=== PATIENT | male | born 1990 | race Two or more races ===

== ENCOUNTER 2019-06-24 05:18 | Emergency (ER) | payer MEDICAID, OTHER ==
[~2019-06-24] VITALS: Ht 185.4 cm; Wt 97.1 kg
[2019-06-24 06:15] LABS: Basophils # (auto) 0.1 uL; Basophils % (auto) 0.9 % (0.0-2.0); Eosinophils # (auto) 0.4 uL; Eosinophils % (auto) 3.3 % (0.0-7.0); Hematocrit 45.8 % (41.0-53.0); Hemoglobin 15.6 g/dL (13.5-17.5); Lymphocytes # (auto) 2.2 uL; Lymphocytes % (auto) 20.2 % (10.0-50.0); Mean Corpuscular Hemoglobin 31.8 pg (28.0-32.0); Mean Corpuscular Volume 93.5 fL (80.0-100.0); Monocytes # (auto) 0.9 uL; Monocytes % (auto) 8.5 % (0.0-12.0); Neutrophils # (auto) 7.2 uL; Neutrophils % (auto) 67.1 % (37.0-80.0); Nucleated Red Blood Cells % 0.1 %; Platelet Count (auto) 283 10^3/uL (140-450); Red Cell Distribution Width 13.6 % (11.8-14.3); White Blood Cell 10.8 10^3/uL (4.4-10.8)
[2019-06-24 06:42] LABS: Albumin 3.7 g/dL (3.4-5.0); Anion Gap 6 (5-15); Blood Urea Nitrogen 9 mg/dL (7-18); Calcium 8.4 mg/dL (8.5-10.1); Carbon Dioxide 27 mmol/L (21-32); Chloride 104 mmol/L (98-107); Glucose 129 mg/dL (74-106); Magnesium 2.3 mg/dL (1.6-2.6); Potassium 3.8 mmol/L (3.5-5.1); Sodium 137 mmol/L (136-145)
[2019-06-24 06:49] LABS: Alanine Aminotransferase 25 U/L (16-61); Alkaline Phosphatase 91 U/L (45-117); Aspartate Aminotransferase 20 U/L (15-37); BUN/Creatinine Ratio 9.5; Bilirubin, Total 0.4 mg/dL (0.2-1.0); GFR African American 121 mL/min; GFR Non-African American 100 mL/min; Total Protein 7.5 g/dL (6.4-8.2)
[2019-06-24] MEDS ORDERED: KETOROLAC TROMETH 30 MG/ML 1ML VIAL IV ONE (08:15)
[2019-06-24 13:06] LABS: Urine Bacteria NONE SEEN /hpf (None Seen); Urine Blood 1+ /uL (Negative); Urine Mucus FEW (None Seen); Urine Specific Gravity 1.017 (1.001-1.035); Urine WBC 3 /hpf (0 - 3)
[2019-06-24 13:30] VITALS: BP 103/56
== END 2019-06-24 14:22 | disposition home or self-care (01) ==
LOC: ER 05:18
DX: R07.89 Other chest pain (principal); F17.210 Nicotine dependence, cigarettes, uncomplicated; F12.10 Cannabis abuse, uncomplicated
CPT/HCPCS: 36415; 71046; 80053; 81001; 83735; 84484; 85025; 93005; 96374; 99284; J1885

== ENCOUNTER 2020-11-06 23:57 | Emergency (ER) | payer SELFPAY ==
[~2020-11-06] VITALS: Ht 185.4 cm; Wt 104.3 kg
[2020-11-07 00:35] VITALS: BP 152/80
[2020-11-07] MEDS ORDERED: MORPHINE SULF INJ 2 MG/ML SYRINGE 1ML IM ONE (02:00)
[2020-11-07] MEDS ORDERED: TETANUS-DIPTH-ACEL PERTUSSIS 0.5ML SYR Tdap IM ONE (02:00)
[2020-11-07] MEDS ORDERED: ONDANSETRON ODT 4 MG TAB PO ONE (02:00)
[2020-11-07] MEDS ORDERED: cefTRIAXone SOD 1,000 MG VL IM ONE (02:00)
[2020-11-07] MEDS ORDERED: BACITRACIN TOP OINT 1 UD PKG TOP ONE (03:15)
== END 2020-11-07 03:41 | disposition home or self-care (01) ==
LOC: ER 23:58
DX: S61.512A Laceration without foreign body of left wrist, initial encounter (principal); F12.10 Cannabis abuse, uncomplicated; W26.9XXA Contact with unspecified sharp object(s), initial encounter; Y93.89 Activity, other specified; Y92.89 Other specified places as the place of occurrence of the external cause; Y99.8 Other external cause status
CPT/HCPCS: 12004; 73090; 90471; 90715; 96372; 99284; J0696; J2270; Q0162

== ENCOUNTER 2024-06-12 06:17 | Inpatient (IN) | payer OTHER, MEDICAID ==
[2024-06-12] VITALS (8 sets, daily range): BP systolic 103–139; BP diastolic 55–77; PULSE 82–109; RESP 14–18; TEMP 97.3–98.5; O2SAT 95–98
[~2024-06-12] VITALS: Ht 182.9 cm; Wt 107.2 kg
[2024-06-12] MEDS: methylPREDNISolone SOD SUCC 125 MG/2 ML VL IM ONE (06:30)
[2024-06-12] MEDS: ALBUTEROL SULF 2.5 MG/0.5ML(0.5%) NEB SOLN NEB ONE ×3 (06:38→15:10)
[2024-06-12] MEDS: IPRATROPIUM BROM 0.5 MG/2.5ML INH SOL NEB ONE ×2 (06:38→15:10)
[2024-06-12] MEDS: methylPREDNISolone SOD SUCC 125 MG/2 ML VL IV ONE (07:36)
[2024-06-12 08:02] LABS: Basophils # (auto) 0.1 10 ^3/uL (0-0.2); Basophils % (auto) 0.5 % (0.0-2.0); Eosinophils # (auto) 1.3 10 ^3/uL (0-0.8); Eosinophils % (auto) 9.6 % (0.0-7.0); Hematocrit 48.7 % (41.0-53.0); Hemoglobin 17.1 g/dL (13.5-17.5); Lymphocytes # (auto) 3.2 10 ^3/uL (0.4-5.4); Lymphocytes % (auto) 24.4 % (10.0-50.0); Mean Corpuscular Hemoglobin 31.8 pg (28.0-32.0); Mean Corpuscular Hgb Conc. 35.2 g/dL (32.0-36.0); Mean Corpuscular Volume 90.4 fL (80.0-100.0); Monocytes # (auto) 0.8 10 ^3/uL (0-1.3); Monocytes % (auto) 5.8 % (0.0-12.0); Neutrophils # (auto) 7.9 10 ^3/uL (1.6-8.6); Neutrophils % (auto) 59.7 % (37.0-80.0); Platelet Count (auto) 345 10^3/uL (140-450); Red Blood Cells 5.38 10^6/uL (4.5-5.90); White Blood Cell 13.2 10^3/uL (4.4-10.8)
[2024-06-12 08:14] LABS: Chloride 105 mmol/L (98-107); Potassium 3.8 mmol/L (3.5-5.1); Sodium 141 mmol/L (136-145)
[2024-06-12 08:15] LABS: Anion Gap 10 (5-15); Carbon Dioxide 26 mmol/L (20-30)
[2024-06-12 08:16] LABS: Calcium 10.1 mg/dL (8.7-10.4)
[2024-06-12 08:20] LABS: BUN/Creatinine Ratio 7.8 (10.0-20.0); Blood Urea Nitrogen 8 mg/dL (9-23); Glucose 110 mg/dL (74-106)
[2024-06-12] MEDS ORDERED: MORPHINE SULFATE INJ 2 MG/ml SYRG IV PRN (13:45)
[2024-06-12] MEDS ORDERED: ONDANSETRON HCL 4 MG/2 ML VIAL IV PRN (13:45)
[2024-06-12] MEDS ORDERED: DOCUSATE SOD 100 MG CAP PO PRN (13:45)
[2024-06-12] MEDS ORDERED: NITROGLYCERIN 0.4 MG SL TAB SL PRN (13:45)
[2024-06-12] MEDS: methylPREDNISolone SOD SUCC 125 MG/2 ML VL IV SCH (14:00)
[2024-06-12] MEDS: PANTOPRAZOLE 40 MG/10 ML VIAL INJ IV ONE (14:23)
[2024-06-12] MEDS: SODIUM CHLORIDE 0.9% 1,000 ML IV ONE (14:23)
[2024-06-12] MEDS: levoFLOXacin 500MG 100 ML IV ONE (14:23)
[2024-06-12] MEDS: IPRATROPIUM BROM 0.5 MG/2.5ML INH SOL NEB SCH (14:55)
[2024-06-12] MEDS: ALBUTEROL SULF 2.5 MG/0.5ML(0.5%) NEB SOLN NEB SCH (14:55)
[2024-06-12] MEDS: SODIUM CHLORIDE 0.9% 1,000 ML IV SCH (17:50)
[2024-06-12 21:47] LABS: COVID19 ANTIGEN SOFIA FIA NEGATIVE (NEGATIVE); Rapid Influenza A Negative (Negative); Rapid Influenza B Negative (Negative)
[2024-06-13] VITALS (13 sets, daily range): BP systolic 103–144; BP diastolic 53–80; PULSE 75–109; RESP 17–20; TEMP 97–98.6; O2SAT 93–100
[2024-06-13 05:10] LABS: Basophils # (auto) 0 10 ^3/uL (0-0.2); Basophils % (auto) 0.3 % (0.0-2.0); Eosinophils # (auto) 0 10 ^3/uL (0-0.8); Hematocrit 40.8 % (41.0-53.0); Hemoglobin 14.1 g/dL (13.5-17.5); Lymphocytes # (auto) 1.4 10 ^3/uL (0.4-5.4); Lymphocytes % (auto) 7.8 % (10.0-50.0); Mean Corpuscular Hemoglobin 31.3 pg (28.0-32.0); Mean Corpuscular Hgb Conc. 34.5 g/dL (32.0-36.0); Mean Corpuscular Volume 90.9 fL (80.0-100.0); Monocytes # (auto) 0.6 10 ^3/uL (0-1.3); Monocytes % (auto) 3.4 % (0.0-12.0); Neutrophils # (auto) 15.8 10 ^3/uL (1.6-8.6); Neutrophils % (auto) 88.5 % (37.0-80.0); Platelet Count (auto) 293 10^3/uL (140-450); Red Blood Cells 4.49 10^6/uL (4.5-5.90); Red Cell Distribution Width 14.3 % (11.8-14.3); White Blood Cell 17.8 10^3/uL (4.4-10.8)
[2024-06-13 05:29] LABS: Alanine Aminotransferase 14 U/L (7-40); Alkaline Phosphatase 72 U/L (46-116)
[2024-06-13 05:30] LABS: Albumin 4.2 g/dL (3.2-4.8); Anion Gap 8 (5-15); Aspartate Aminotransferase < 8 U/L (13-40); BUN/Creatinine Ratio 13.1 (10.0-20.0); Bilirubin, Total 0.4 mg/dL (0.2-1.0); Blood Urea Nitrogen 11 mg/dL (9-23); Calcium 9.4 mg/dL (8.7-10.4); Carbon Dioxide 23 mmol/L (20-30); Chloride 107 mmol/L (98-107); Glucose 172 mg/dL (74-106); Potassium 4.2 mmol/L (3.5-5.1); Sodium 138 mmol/L (136-145); Total Protein 6.9 g/dL (5.7-8.2)
[2024-06-13] MEDS: levoFLOXacin 500MG 100 ML IV SCH (09:51)
[2024-06-13] MEDS: PANTOPRAZOLE 40 MG/10 ML VIAL INJ IV SCH (09:51)
[2024-06-13] MEDS ORDERED: methylPREDNISolone SOD SUCC 125 MG/2 ML VL IV SCH (12:45)
[2024-06-13 16:26] LABS: Amphetamine Screen, Urine Neg (NEGATIVE); Barbiturate Scree,Urine Neg (NEGATIVE); Benzodiazephine Screen, Urine Neg (NEGATIVE); Cannabinoid Screen, Urine Pos (NEGATIVE); Cocaine Screen, Urine Neg (NEGATIVE); Opiate Scree,Urine Neg (NEGATIVE); Phencyclidine Screen, Urine Neg (NEGATIVE)
[2024-06-13] MEDS: methylPREDNISolone SOD SUCC 40 MG/ML VL IV SCH (21:36)
[2024-06-14] VITALS (12 sets, daily range): BP systolic 105–124; BP diastolic 56–70; PULSE 87–110; RESP 16–20; TEMP 36.6; O2SAT 96–100
[2024-06-14 06:52] LABS: Hematocrit 40.4 % (41.0-53.0); Hemoglobin 13.9 g/dL (13.5-17.5); Mean Corpuscular Hemoglobin 31.5 pg (28.0-32.0); Mean Corpuscular Hgb Conc. 34.5 g/dL (32.0-36.0); Mean Corpuscular Volume 91.1 fL (80.0-100.0); Platelet Count (auto) 289 10^3/uL (140-450); Red Blood Cells 4.43 10^6/uL (4.5-5.90); Red Cell Distribution Width 14.3 % (11.8-14.3); White Blood Cell 20.8 10^3/uL (4.4-10.8)
[2024-06-14 07:15] LABS: Basophils % (manual) 0 (0.0-2.0); Blast Cells 0; Eosinophils % (manual) 0 (0-7); Metamyelocytes % 0; Myelocytes % 0; Promyelocytes % 0; Reactive Lymphocytes 0
[2024-06-14 07:45] LABS: Chloride 106 mmol/L (98-107); Sodium 136 mmol/L (136-145)
[2024-06-14 07:46] LABS: Anion Gap 6 (5-15); Calcium 9.5 mg/dL (8.7-10.4); Carbon Dioxide 24 mmol/L (20-30)
[2024-06-14 07:51] LABS: BUN/Creatinine Ratio 15.3 (10.0-20.0); Blood Urea Nitrogen 13 mg/dL (9-23); Glucose 196 mg/dL (74-106)
[2024-06-14] MEDS: cefTRIAXone 1GM/50ML D5W 50 ML IV SCH (08:43)
[2024-06-14 09:10] LABS: Band Neutrophils % (manual) 8; Lymphocytes % (manual) 4 (10.0-50.0); Monocytes % (manual) 6 (0-12)
[2024-06-14 09:12] LABS: Platelet Estimate Adequate
[2024-06-14] MEDS: AZITHROMYCIN 500MG/ 250ML 250 ML IV SCH (11:02)
[2024-06-14] MEDS ORDERED: PRED20TA2 PO (17:41)
[2024-06-14] MEDS ORDERED: AZIT-185 PO (17:41)
[2024-06-14] MEDS ORDERED: FLUT100I IN (17:41)
[2024-06-15 08:58] LABS: Hepatitis B Surface Antigen Negative (Negative)
[2024-06-15 09:22] LABS: Hepatitis C Antibody Negative (Negative)
== END 2024-06-14 17:27 | disposition home or self-care (01) | DRG 871 ==
LOC: ER 06:17 → OVERFLOW 13:42 → WEST WING 21:26
PROVIDERS: ADMIT Internal Medicine Pulmonary Disease; ATTEND Internal Medicine Pulmonary Disease
DX: A41.50 Gram-negative sepsis, unspecified (principal); J15.69 Pneumonia due to other Gram-negative bacteria; J96.00 Acute respiratory failure, unspecified whether with hypoxia or hypercapnia; J15.9 Unspecified bacterial pneumonia; J44.0 Chronic obstructive pulmonary disease with (acute) lower respiratory infection; Z20.822 Contact with and (suspected) exposure to COVID-19; E66.9 Obesity, unspecified; Z87.891 Personal history of nicotine dependence; Z79.899 Other long term (current) drug therapy; Z68.31 Body mass index [BMI] 31.0-31.9, adult
CPT/HCPCS: 36415; 71045; 71250; 80048; 80053; 80307; 83880; 85007; 85025; 85027; 85379; 86803; 87070; 87081; 87205; 87340; 87426; 87804; 94640; 96365; 96372; 96375; 99291; G0378; J1956; J2470

== ENCOUNTER 2025-03-05 10:05 | Emergency (ER) | payer MEDICAID, OTHER ==
[~2025-03-05] VITALS: Ht 182.9 cm; Wt 98.8 kg
[~2025-03-05 10:05] MED LIST: AZIT-185 PO; FLUT100I IN; PRED20TA2 PO
--- NOTE | 2025-03-05 11:10 | DVH ---
EXAM: XY R FOOT 3 VIEW XRAY CLINICAL INDICATION: R/o fracture TECHNIQUE: XY R FOOT 3 VIEW XRAY Comparison: None FINDINGS/IMPRESSION: There is no evidence of acute fracture or dislocation. Postsurgical changes distal tibia and fibula. The alignment is anatomical. There is no radiopaque foreign body.
[2025-03-05 12:05] VITALS: BP 132/77; PULSE 77; RESP 17; TEMP 98.7; O2SAT 97
[2025-03-05] MEDS ORDERED: NAP500T PO (12:07)
--- NOTE | 2025-03-05 12:13 | ED.PDOC ---
Musculoskeletal HPI Comments A 34-year-old male with no past medical history presents to the emergency department with a chief complaint of RT ankle pain onset 1 day. Patient states he was drinking, jumping over fences when he fell, landed on RT foot. Since then, patient has noticed swelling, pain to RT ankle, pain worsens with walking. No other symptoms or modifying factors present at this time. Still able to bear weight Denies previous surgeries to the ankle Denies fever chills night sweats nausea vomiting Denies head injury, LOC Denies back pain Chief Complaint: Lower Extremity Time Seen by MD: 11:45 Primary Care Provider: NONE Reviewed Notes: Nurses Notes, Medications, Allergies Allergies: Coded Allergies: NO KNOWN ALLERGIES (Unverified , 05/03/13) Home Meds Active Scripts Naproxen (NAPROSYN TABLET) 500 Mg Tb, 1 TAB PO BID for 10 Days, #20 TAB 0 Refills Prov:FELICIANO PLUMMER APPLICATIONS SYSTEM ANALYST 03/05/25 Prednisone (Prednisone) 20 Mg Tab, 20 MG PO DAILY for 5 Days, #5 MG Prov:JOSS KHAN RESIDENT 06/14/24 Azithromycin (ZITHROMAX TABLET) 250 Mg Tb, 250 MG PO BID for 5 Days, #10 TAB Prov:JOSS KHAN 06/14/24 Fluticasone Furoate-Vilanterol (BREO ELLIPTA) 1 Inh Inh, 1 INH IN 2XW for 30 Days, #10 INHALER Prov:JOSS KHAN RESIDENT 06/14/24 Information Source: Patient Mode of Arrival: Ambulatory Location: Right Extremity Location: Ankle Timing: Days Prehospital treatment: None Severity: Moderate Able to Move Extremity: Yes Bear Weight: Limited Pain: Moderate Mechanism: Spontaneous Circumstances: Fall Onset of Symptoms: After Trauma Symptoms: Swelling, Pain DVT Risk Factors: NONE Last Tetanus: UTD Associated signs and symptoms: Ankle pain Past Medical History PAST MEDICAL HISTORY: Denies Surgical History: Denies all surgeries Family History Family History: Reviewed,noncontributory to illness Social History Smoker: Other Alcohol: Occasionally Drugs: Marijuana Lives In: Home All Other Systems: Reviewed and Negative (as per HPI) Physical Exam General Appearance: No Apparent Distress, Normal HEENT: Head (normocephalic ), Normal ENT Inspection, Pharynx Normal, TMs Normal Neck: Full Range of Motion, Non-Tender, Normal, Normal Inspection Respiratory: Chest Non-Tender, Lungs Clear, No Accessory Muscle Use, No Respiratory Distress, Normal Breath Sounds Cardiovascular: No Murmur, No Gallop, Regular Rate/Rhythm Breast Exam: Deferred Gastrointestinal: No Organomegaly, Non Tender, No Pulsatile Mass, Normal Bowel Sounds, Soft Genitalia: Deferred Pelvic: Deferred Rectal: Deferred Extremities: No calf tenderness, Normal capillary refill, No pedal edema Musculoskeletal : Extremity Location: Ankle (RT ankle. no midline tenderness, no bony step offs, full ROM, foward flexion, extension. Localized TTP to the calcaneal r egion. No echymosis. ) Apperance: Normal Neurologic: Alert, psychiatric attendant II-XII nml as Tested, No Motor Deficits, Normal Affect, Normal Mood, No Sensory Deficits Cerebellar Function: Normal Reflexes: Normal Skin: Dry, Normal Color, Warm Lymphatic: No Adenopathy Was a procedure done? Was a procedure done?: No Differential Diagnosis EXT Differential Diagnosis: Fracture, Sprain, Dislocation X-Ray, Labs, Meds, VS Vital Signs Date Time Temp Pulse Resp B/P (MAP) Pulse Ox O2 Delivery O2 Flow Rate FiO2 03/05/25 12:05 77 17 97 Room Air 03/05/25 12:05 98.7 74 16 132/77 (95) 97 98.7 03/05/25 10:27 97.9 72 16 129/72 (91) 98 97.9 DIAGNOSTIC IMAGING Diagnostic Imaging Report : [id number] Signed PATIENT: MARCO PITTS ACCT: [id number] UNIT: [id number] : 1990 LOC: ER ROOM / BED: / AGE / SEX: 34 / M ADM STATUS: REG ER SERVICE 1032 ORDERING PHYSICIAN: FELICIANO PLUMMER NP PROCEDURE(s): RFOOT - R FOOT 3 VIEW XRAY REASON: R/o fracture ORDER NUMBER(s): [id number], ACCESSION NUMBER(s): [id number] EXAM: XY R FOOT 3 VIEW XRAY CLINICAL INDICATION: R/o fracture TECHNIQUE: XY R FOOT 3 VIEW XRAY Comparison: None FINDINGS/IMPRESSION: There is no evidence of acute fracture or dislocation. Postsurgical changes distal tibia and fibula. The alignment is anatomical. There is no radiopaque foreign body. ATED BY: JORGITO MEIER MD DICTATED DATE/TIME: 03/05/25 1108 SIGNED BY: JORGITO MEIER MD X-Ray, Labs, Meds, VS Comment A 34-year-old male with no past medical history presents to the emergency department with a chief complaint of RT ankle pain onset 1 day. Patient arrives alert and oriented, ABC's intact, afebrile, vital signs stable, saturating ell in room air Diagnostic imaging ordered by me and results interpreted by radiology : R FOOT 3 VIEW XRAY: Results negative. Declined crutches. Advised NSAID's prn RICE Patient is stable for discharge at this time. External notes reviewed. Test results and diagnostic imaging interpreted. All diagnostic findings, discharge care, education and instructions provided Follow-up with PCP in 2 to 3 days Patient verbalized understanding and agreed to treatment plan Vital signs stable, afebrile, no acute distress noted Patient ambulatory with strong steady gait Advised to return precautions for any new or worsening symptoms, return to ER immediately for re-evaluation Patient is aware that the purpose of this visit was for an acute medical emergency requiring emergent stabilization. Chronic conditions, including malignancies have not been ruled out. Patient is instructed to follow up with PCP as directed and discharge instructions for continued care and workup. If un able to arrange follow-up, patient is to return to the emergency department for reassessment. Patient (parent or legal guardian if applicable) was given verbal and written discharge instructions and acknowledges understanding. Additional MDM Review of External, Non-ED records: External records reviewed. Discussion with independent historian (EMS, family) history obtained from the patient/parents (if applicable) at bedside Chronic conditions affecting care: None Social determinants of health affecting care: marijuana, occasional ETOH Consideration of admission (observation or admission): I considered escalation of care to admission for this patient, however given the reassuring workup, the patient is safe for outpatient management. Time of 1ST Reevaluation: 12:15 Reevaluation 1ST: Improved Patient Education/Counseling: Diagnosis, Treatment, Prognosis Family Education/Counseling: No Family Present Departure 1 Departure Time of Disposition: 12:14 Impression: Primary Impression: Foot pain, right Disposition: 01 HOME / SELF CARE / HOMELESS Condition: Stable Additional Instructions: Discharge Note: Continue on your medications. Drink plenty of fluids. Follow up with your primary Dr. No weight bearing. Take your prescriptions as ordered. If your condition becomes worse call and follow up with your primary Dr. for instructions or return to the ER if needed. Thank you for visiting [facility]. e-Prescriptions Naproxen (NAPROSYN TABLET) 500 Mg Tb 1 TAB PO BID for 10 Days, #20 TAB 0 Refills Prov: FELICIANO PLUMMER NP 03/05/25 Critical Care Note Critical Care Time?: No Stability Stability form required: No Heart Score Heart Score: Heart Score Response (Comments) Value History N/A 0 EKG N/A 0 Age N/A 0 Risk Factors N/A 0 Troponin N/A 0 Total 0 I personally scribed for FELICIANO PLUMMER NP ([email or web address]) on 03/05/25 at 12:13. Electronically submitted by Anna Ribeiro ([email or web address]). FELICIANO PLUMMER NP Mar 05, 2025 12:13
== END 2025-03-05 12:20 | disposition home or self-care (01) ==
LOC: ER 10:05
DX: M79.671 Pain in right foot (principal); M25.571 Pain in right ankle and joints of right foot; F12.90 Cannabis use, unspecified, uncomplicated; F17.200 Nicotine dependence, unspecified, uncomplicated; Z79.52 Long term (current) use of systemic steroids; Z79.51 Long term (current) use of inhaled steroids; Z79.2 Long term (current) use of antibiotics
CPT/HCPCS: 73630